=== PATIENT | male | born 1955 | race African-American/Black ===

== ENCOUNTER 2025-08-13 19:46 | Emergency (ER) | payer MEDICARE, OTHER ==
[~2025-08-13] VITALS: Ht 172.7 cm; Wt 70.2 kg
[2025-08-13 20:23] VITALS: TEMP 36.7; O2SAT 99
[2025-08-13] MEDS: ACETAMINOPHEN 500MG TABLET PO ONE (22:20)
[2025-08-14] MEDS ORDERED: OXYC-100 MT (00:51)
[2025-08-14 01:02] VITALS: BP 102/60; PULSE 58; RESP 16; O2SAT 99
== END 2025-08-14 01:02 | disposition home or self-care (01) ==
LOC: ER 19:46
DX: M54.9 Dorsalgia, unspecified (principal); E11.41 Type 2 diabetes mellitus with diabetic mononeuropathy; M54.2 Cervicalgia
CPT/HCPCS: 72040; 99283